=== PATIENT | female | born 1950 | race Caucasian/White ===

== ENCOUNTER → 2016-08-07 | Outpatient (CLI) | payer BC, MEDICARE ==
[~2016-08-07] MED LIST: ASPI-557 PO; ATEN-36; LOVA20TA3 PO; MULT1CAP32
== END ==
LOC: WC.BC 07:46
DX: Z12.31 Encounter for screening mammogram for malignant neoplasm of breast (principal); N64.59 Other signs and symptoms in breast
CPT/HCPCS: 77063; G0202